=== PATIENT | female | born 1980 | race Caucasian/White ===

== ENCOUNTER 2024-05-03 02:25 | Emergency (ER) | payer OTHER ==
[~2024-05-03] VITALS: Ht 167.6 cm; Wt 113.6 kg
[2024-05-03 02:31] VITALS: TEMP 98.2
[2024-05-03] MEDS: PredniSONE 20 MG TABLET PO ONE (03:53)
[2024-05-03 04:07] LABS: COVID AG,FIA SOURCE NASAL SWAB
[2024-05-03] MEDS: ALBUTEROL SULFATE 2.5 MG/0.5 ML NEB SOLUTION NEB ONE (04:16)
[2024-05-03] MEDS: IPRATROPIUM BROMIDE 0.5 MG/2.5 ML NEB SOLUTION NEB ONE (04:16)
[2024-05-03 04:20] VITALS: PULSE 67; RESP 18; O2SAT 97
[2024-05-03 04:31] LABS: SARS-COV2 (COVID) ANTIGEN,FIA Negative (Negative)
[2024-05-03] MEDS ORDERED: ALBU18HF12 IH (05:13)
[2024-05-03] MEDS ORDERED: PRED-554 PO (05:13)
[2024-05-03 05:15] VITALS: BP 122/68; PULSE 72; RESP 16; O2SAT 98
[2024-05-04] MEDS ORDERED: ALBU18HF12 IH (14:15)
[2024-05-04] MEDS ORDERED: PRED-554 PO (14:15)
[2024-05-04] MEDS ORDERED: GUAIF10 PO (14:24)
== END 2024-05-03 05:20 | disposition home or self-care (01) ==
LOC: EMS 02:25
DX: J45.909 Unspecified asthma, uncomplicated (principal); Z20.822 Contact with and (suspected) exposure to COVID-19
CPT/HCPCS: 99283; 87426; 94640; J7512

== ENCOUNTER 2024-05-04 10:06 | Emergency (ER) | payer OTHER ==
[~2024-05-04] VITALS: Ht 162.6 cm; Wt 113.6 kg
[~2024-05-04 10:06] MED LIST: ALBU18HF12 IH; PRED-554 PO
[2024-05-04 10:17] VITALS: TEMP 98.3
[2024-05-04 11:13] VITALS: PULSE 75; RESP 18; O2SAT 98
[2024-05-04] MEDS: ALBUTEROL SULFATE 2.5 MG/0.5 ML NEB SOLUTION NEB ONE (11:13)
[2024-05-04] MEDS: IPRATROPIUM BROMIDE 0.5 MG/2.5 ML NEB SOLUTION NEB ONE (11:14)
[2024-05-04] MEDS: PredniSONE 20 MG TABLET PO ONE (11:20)
[2024-05-04 11:25] VITALS: PULSE 72; RESP 18; O2SAT 100
[2024-05-04] MEDS ORDERED: ALBU18HF12 IH (14:15)
[2024-05-04] MEDS ORDERED: PRED-554 PO (14:15)
[2024-05-04] MEDS ORDERED: GUAIF10 PO (14:24)
[2024-05-04 14:28] VITALS: BP 128/84; PULSE 74; RESP 18; O2SAT 98
[2024-05-04] MEDS: ALBUTEROL SULFATE HFA 90 MCG/PUFF 8 GM INHALER IH ONE (14:30)
== END 2024-05-04 14:37 | disposition home or self-care (01) ==
LOC: EMS 10:06
DX: J45.909 Unspecified asthma, uncomplicated (principal)
CPT/HCPCS: 99284; 94640; J7512; J3535